=== PATIENT | female | born 1935 | race African-American/Black ===

== ENCOUNTER 2021-05-09 09:47 | Inpatient (IN) | payer OTHER ==
[~2021-05-09] VITALS: Ht 165.1 cm; Wt 121.8 kg
[2021-05-09 09:56] VITALS: BP 186/94
[2021-05-09] MEDS ORDERED: LANTUS SUBQ (10:04)
[2021-05-09] MEDS ORDERED: NORCO5 PO ×2 (10:05→16:03)
[2021-05-09] MEDS ORDERED: NORVASC5 MG PO (10:05)
[2021-05-09] MEDS ORDERED: BUTALBIT-ACETA1 EACH PO (10:06)
[2021-05-09] MEDS ORDERED: DULOXETINE HCL30 MG PO ×2 (10:06→15:58)
[2021-05-09] MEDS ORDERED: ELIQUIS2.5 MG PO ×2 (10:07→15:49)
[2021-05-09] MEDS ORDERED: ASA81BEC PO (10:07)
[2021-05-09] MEDS ORDERED: CENTRUM SILVER1 EAC6 PO (10:08)
[2021-05-09] MEDS ORDERED: ZOFRAN4 MG PO (10:08)
[2021-05-09] MEDS ORDERED: LASIX 40 MG TAB40 MG PO (10:09)
[2021-05-09] MEDS ORDERED: CARAFATE 1 GM TA1 GM PO ×2 (10:09→16:15)
[2021-05-09] MEDS ORDERED: CREON DR 12,001 EACH PO ×2 (10:10→15:49)
[2021-05-09] MEDS ORDERED: ISOSORBIDE DINI30 MG PO (10:11)
[2021-05-09] MEDS ORDERED: DICLOFENAC SOD100 G1 TOP ×2 (10:12→15:53)
[2021-05-09] MEDS ORDERED: PROTONIX40 M4 PO ×2 (10:13→16:11)
[2021-05-09] MEDS ORDERED: LIPITOR 40 MG T40 M1 PO (10:13)
[2021-05-09] MEDS ORDERED: REQUIP 0.25 M0.25 M1 PO (10:13)
[2021-05-09] MEDS ORDERED: TRAMADOL 50 MG50 MG PO (10:14)
[2021-05-09] MEDS ORDERED: HYDROXYZINE HCL25 M2 PO (10:14)
[2021-05-09] MEDS ORDERED: SPIRONOLACTONE25 MG PO (10:14)
[2021-05-09] MEDS ORDERED: CARVEDILOL12.5 MG PO (10:15)
[2021-05-09] MEDS ORDERED: CLONIDINE HCL0.1 MG PO ×2 (10:18→15:57)
[2021-05-09] MEDS ORDERED: POTASSIUM20 PO ×2 (10:20→10:21)
[2021-05-09 10:51] LABS: ABSOLUTE BASOPHILS 0.4 thou/uL (0.0-0.2); ABSOLUTE EOSINOPHILS 0.3 thou/uL (0.0-0.7); ABSOLUTE LYMPHOCYTES 4.2 thou/uL (0.8-5.3); ABSOLUTE MONOCYTES 1.4 thou/uL (0.0-1.2); ABSOLUTE NEUTROPHILS 7.3 thou/uL (1.6-8.1); BASOPHILS 2.9 %; EOSINOPHILS 2.3 %; HEMATOCRIT 32.6 % (37.0-47.0); HEMOGLOBIN 10.5 gm/dL (12.0-15.0); MCHC 32.2 g/dL (28.0-37.0); MCV 86.9 fL (80.0-100.0); MPV 9.9 fl. (7.2-11.1); NUCLEATED RBCS 0 /100WBC; PLATELET COUNT* 278 thou/uL (150-400); POLYS 53.8 %; RBC 3.75 mil/uL (4.20-5.00); RDW-CV 16.6 % (10.5-14.5); WBC 13.5 thou/uL (4.0-11.0)
[2021-05-09 11:00] LABS: CALCIUM 9.7 mg/dL (8.5-10.1); CREATININE 1.9 mg/dL (0.6-1.3)
[2021-05-09 11:10] LABS: ALBUMIN 3.4 g/dL (3.4-5.0); MAGNESIUM 2.3 mg/dL (1.8-2.4); TOTAL BILIRUBIN 0.2 mg/dL (<0.1-1.0); TOTAL PROTEIN 8.1 g/dL (6.4-8.2)
--- NOTE | 2021-05-09 14:14 | EKG ---
[place] [address] ELECTROCARDIOGRAM REPORT Name: NINA PARKS Room: [place] [address] ADM IN [facility]#: [id number] Admission: 05/09/21 Attend Phys: Daquan Chowdhury Discharge: Date of : 39 Date of Service: 05/09/21 1023 Report #: [id number] THIS REPORT FOR: //name// [facility] ED Test Date: 2021-05-09 Test Time: 10:23:35 Pat Name: NINA PARKS Department: Room: [facility] Gender: F Supervisor [employer]: RADHA : 1935 Requested By: Navdeep Samuel Order Number: [id number] MD: Stveie Louie Measurements Intervals [place] Rate: 87 P: -50 VA: 174 QRS: -48 QRSD: 95 T: -22 QT: 397 QTc: 478 Interpretive Statements Atrial-sensed ventricular-paced complexes ventricular pseudofusion beats noted No further rhythm analysis attempted due to paced rhythm No previous ECG available for comparison Electronically Signed On 05-09-2021 14:14:38 CDT by Stevie Louie [email or web address] <ELECTRONICALLY SIGNED> By: Stevie Louie MD, [facility] 05/09/21 1414 1023 1023 Stevie Louie MD, [facility] /EPI
[2021-05-09 14:30] VITALS: BP 166/73
[2021-05-09 15:00] VITALS: BP 171/83
[2021-05-09] MEDS ORDERED: NORVASC10 MG PO (15:47)
[2021-05-09] MEDS ORDERED: ACETAMINOPHEN325 MG PO (15:47)
[2021-05-09] MEDS ORDERED: LIPITOR40 MG PO (15:50)
[2021-05-09] MEDS ORDERED: CHILDREN'S ASPI81 M1 PO (15:50)
[2021-05-09] MEDS ORDERED: BISACODYL5 MG PO (15:52)
[2021-05-09] MEDS ORDERED: BISOPROLOL FUMAR5 MG PO (15:53)
[2021-05-09] MEDS ORDERED: CALCIUM CARBON500 MG PO (15:54)
[2021-05-09] MEDS ORDERED: FLONASE 0.05%50 MCG NARES (15:59)
[2021-05-09] MEDS ORDERED: FUROSEMIDE 40 M40 MG PO (16:00)
[2021-05-09] MEDS ORDERED: NEURONTIN 300M300 M2 PO (16:01)
[2021-05-09] MEDS ORDERED: GLUCERNA237 M1 PO (16:02)
[2021-05-09] MEDS ORDERED: HYDRALAZINE 5050 MG PO (16:03)
[2021-05-09] MEDS ORDERED: LANTUS100 UNIT/M SUBQ (16:05)
[2021-05-09] MEDS ORDERED: INSULIN LI100 UNIT/1 SUBQ (16:06)
[2021-05-09] MEDS ORDERED: IMDUR 30 MG TAB30 M1 PO (16:08)
[2021-05-09] MEDS ORDERED: IPRAT-ALBUT 0.5-3 ML INH (16:08)
[2021-05-09] MEDS ORDERED: KRISTALOSE20 GM PO (16:10)
[2021-05-09] MEDS ORDERED: ONDANSETRON HCL4 M2 PO (16:11)
[2021-05-09] MEDS ORDERED: MIRALAX119 GM PO (16:12)
[2021-05-09] MEDS ORDERED: REQUIP 0.25 M0.25 MG PO (16:13)
[2021-05-09] MEDS ORDERED: SENOKOT8.6 MG PO (16:14)
[2021-05-09 20:00] VITALS: BP 163/83
--- NOTE | 2021-05-09 20:00 | NUR ---
RECEIVED REPORT AND ASSUMED CARE OF PT, ASSESSMENT COMPLETED. PT C/O LT ABD PAIN AND RIBS, MOANING LOUDLY. DISCUSSED CONSTIPATION, PAIN AND ABD CRAMPING. MEDS WILL BE GIVEN SCHEDULED TIME ALLOWS. TELEMETRY ON SHOWING AV PACED RHYTHM. WILL CONT TO MONITOR AND ASSIST NEEDED.
[2021-05-10] VITALS (7 sets, daily range): BP systolic 89–138; BP diastolic 55–79
--- NOTE | 2021-05-10 07:02 | NUR ---
SLEPT WELL TONIGHT. WHEN AWAKE DOES C/O LT ABD PAIN AND LT RIB PAIN. PT HAS NOT VOIDED ALL NIGHT. ASSISTED TO BSC, STILL DID NOT VOID. BLADDER SCANNED FOR NO URINE. WAS INCONT OF SM AMT OF DK STOOL. ASSESSMENT UNCHANGED. TELEMETRY SHOWING A-FIB WITH AV PACED BEATS. HS GOALS OF REST AND SAFETY ACHIEVED. HOURLY ROUNDING OBSERVED.
[2021-05-10 09:14] LABS: ABSOLUTE BASOPHILS 0.1 thou/uL (0.0-0.2); ABSOLUTE EOSINOPHILS 0.1 thou/uL (0.0-0.7); ABSOLUTE LYMPHOCYTES 3.3 thou/uL (0.8-5.3); ABSOLUTE MONOCYTES 1.2 thou/uL (0.0-1.2); ABSOLUTE NEUTROPHILS 7.4 thou/uL (1.6-8.1); BASOPHILS 0.7 %; EOSINOPHILS 1.1 %; HEMATOCRIT 32.1 % (37.0-47.0); HEMOGLOBIN 10.1 gm/dL (12.0-15.0); MCH 27.6 pg (26.0-34.0); MCHC 31.4 g/dL (28.0-37.0); MCV 87.9 fL (80.0-100.0); MONOCYTES 9.9 %; MPV 9.6 fl. (7.2-11.1); NUCLEATED RBCS 0 /100WBC; PLATELET COUNT* 257 thou/uL (150-400); POLYS 61.3 %; RBC 3.65 mil/uL (4.20-5.00); RDW-CV 16.7 % (10.5-14.5)
[2021-05-10 09:23] LABS: CALCIUM 8.9 mg/dL (8.5-10.1); CREATININE 2.3 mg/dL (0.6-1.3); POTASSIUM 4.5 mmol/L (3.5-5.1)
--- NOTE | 2021-05-10 10:12 | NUR ---
CM ASSESSMENT: CM ATTEMPTED TO SPEAK TO THE PT TO DISCUSS CM ASSESSMENT. PT RESTING WITH EYES CLOSED. CM ATTEMPTED TO CONTACT PT'S DTR AND LEFT A VOICEMAIL FOR HER TO RETURN CALL. RN IN-CHARGE OF PT INFORMS THAT PT'S DTR STATES THAT THE PT RESIDES AT HOME WITH HER AND IS INDEPENDENT AND ACTIVE AT HOME. CM AWAITING CALL FROM PT'S DTR TO DISCUSS PT'S BASELINE AT HOME. CM WILL REMAIN AVAILABLE TO ASSIST AND FOLLOW NEEDED.
--- NOTE | 2021-05-10 20:00 | NUR ---
RECEIVED REPORT AND ASSUMED CARE OF PT, ASSESSMENT COMPLETED. HOB ELEVATED, O2 ON AT 3L/NC. PT HAVING CONSTANT LT ABD AND RIB PAIN. PT ABLE TO NAP BUT AWAKENS EASILY. TELEMETRY ON SHOWING V PACED. WILL CONT TO MONITOR AND ASSIST NEEDED.
[2021-05-11 03:37] LABS: HEMATOCRIT 27.2 % (37.0-47.0); HEMOGLOBIN 8.8 gm/dL (12.0-15.0); MCH 28.5 pg (26.0-34.0); MCHC 32.2 g/dL (28.0-37.0); MCV 88.7 fL (80.0-100.0); MPV 9.5 fl. (7.2-11.1); RBC 3.07 mil/uL (4.20-5.00); RDW-CV 16.7 % (10.5-14.5); WBC 10.2 thou/uL (4.0-11.0)
[2021-05-11 03:50] VITALS: BP 110/52
[2021-05-11 03:56] LABS: CALCIUM 8.3 mg/dL (8.5-10.1); POTASSIUM 4.8 mmol/L (3.5-5.1)
[2021-05-11 03:58] LABS: CREATININE 3.6 mg/dL (0.6-1.3)
--- NOTE | 2021-05-11 06:32 | NUR ---
SLEPT WELL TONIGHT. PT WORE CPAP FOR SHORT PERIOD OF TIME BUT STARTED TO VOMIT SO REMOVED. O2 ON AT 3L/NC. IV PAIN MED GIVEN X1 AND EFFECTIVE. INCONT OF LG AMT OF LIQ BLACK STOOL. ASSISTED TO BSC X2 WITH SBA. NO CHANGE IN ASSESSMENT. HS GOALS OF REST AND SAFETY ACHIEVED. HOURLY ROUNDING OBSERVED.
[2021-05-11 08:00] VITALS: BP 129/90
[2021-05-11 13:49] VITALS: BP 99/43
[2021-05-11 16:38] VITALS: BP 102/46
[2021-05-11 20:00] VITALS: BP 114/45
[2021-05-12 00:26] VITALS: BP 114/55
[2021-05-12 04:08] LABS: HEMATOCRIT 25.4 % (37.0-47.0); MCH 28.1 pg (26.0-34.0); MCHC 31.6 g/dL (28.0-37.0); MCV 88.7 fL (80.0-100.0); MPV 9.4 fl. (7.2-11.1); RBC 2.86 mil/uL (4.20-5.00); RDW-CV 16.4 % (10.5-14.5); WBC 11.1 thou/uL (4.0-11.0)
[2021-05-12 04:28] LABS: ALBUMIN 2.6 g/dL (3.4-5.0); ALKALINE PHOSPHATASE 79 U/L (46-116); ANION GAP 5 mmol/L (7-16); BUN 44 mg/dL (7-18); CALCIUM 7.6 mg/dL (8.5-10.1); CHLORIDE 103 mmol/L (98-107); CO2 29 mmol/L (21-32); GLUCOSE 209 mg/dL (70-99); MAGNESIUM 3.6 mg/dL (1.8-2.4); SGOT 18 U/L (15-37); SGPT < 6 U/L (30-65); SODIUM 137 mmol/L (136-145); TOTAL BILIRUBIN 0.2 mg/dL (<0.1-1.0); TOTAL PROTEIN 6.5 g/dL (6.4-8.2)
--- NOTE | 2021-05-12 04:45 | NUR ---
PATIENT SLEPT WELL DURING THIS SHIFT. PT ON O2 @ 3 LITERS AND WEARS HOME BIPAP AT NIGHT. PT TURNED Q2H PER PROTOCAL. PT WITH FLUIDS INFUSING PER DR ORDER. PT IS MED/SURG STATUS. PT WITH NO BOWEL MOVEMENTS DURING THIS SHIFT. PT REQUESTED MORPHINE X1 AT HS. FREQUENTLY USED ITEMS AND CALL LIGHT WITHIN REACH. SIDERAILS UPX3 AND BED ALARM ON. WILL CONTINUE TO MONITOR.
[2021-05-12 04:53] VITALS: BP 127/53
[2021-05-12 13:00] VITALS: BP 124/46
[2021-05-12 18:30] VITALS: BP 144/67
--- NOTE | 2021-05-12 18:43 | NUR ---
RESUMED PATIENT CARE AT 0700. ALL ASSESSMENTS COMPLETED CHARTED. PATIENT HAD TWO BOWEL MOVEMENTS.
[2021-05-12 19:45] VITALS: BP 115/60
--- NOTE | 2021-05-12 19:45 | NUR ---
RECEIVED REPORT AND ASSUMED CARE OF PT, ASSESSMENT COMPLETED. PT PLEASANT, BUT MOANING WITH PAIN INTO LUQ ABD AND RIBS, MOANING LOUDER AND RUBBING ABD WHEN ATTENTION IS GIVEN. DISCUSSED PAIN, CONSTIPATION, MEDS. IV FLUIDS INFUSING. WILL CONT TO MONITOR AND ASSIST NEEDED.
[2021-05-13] VITALS: BP 124/57
[2021-05-13 04:00] VITALS: BP 134/64
--- NOTE | 2021-05-13 07:04 | NUR ---
AWAKE FREQ DURING NIGHT DUE TO FREQ STOOLS. HAVING INCONT AND ABLE TO GET UPTO BSC. STOOLS ARE LARGE, UNFORMED AND BLACK. CONT TO C/O LT ABD/RIB PAIN. NO CHANGE IN ASSESSMENT. HS GOALS OF REST AND SAFETY PARTICAL ACHIEVED BUT ADVANCING TOWARDS DISCHARGE. HOURLY ROUNDING OBSERVED.
[2021-05-13 08:36] LABS: CALCIUM 8.1 mg/dL (8.5-10.1); CREATININE 2.3 mg/dL (0.6-1.3); POTASSIUM 5.3 mmol/L (3.5-5.1)
[2021-05-13 08:54] VITALS: BP 125/69
[2021-05-13 12:00] VITALS: BP 125/65
--- NOTE | 2021-05-13 13:30 | NUR ---
PLAN OF CARE: PHYSICIAN INFORMS THAT THE PT IS NOT MEDICALLY STABLE TO D/C TODAY. PLAN REMAINS FOR THE PT RO RETURN HOME AT D/C AND RESUME HH WITH [facility]. CM WILL REMAIN AVAILABLE TO ASSIST AND FOLLOW NEEDED.
[2021-05-13 16:20] VITALS: BP 170/83
--- NOTE | 2021-05-13 17:46 | NUR ---
1720 - Report called to Giovana MG, all questions answered. 1730 - Pt to joint&spine unit at this time by tech with chart and all belongings, upon tx pt aoX2, vss, and no acute concerns. Transfer of care at this time
--- NOTE | 2021-05-13 18:24 | NUR ---
REPORT RECEIVED FROM ELDA MG AT 1720. PT TO UNIT APPROX 1744. PT ARRIVED IN WHEELCHAIR WITH NURSING STAFF. PT ASSISTED TO RECLINER, SBA. PT A&O2-3. 3L O2 BY NASAL CANNULA, BASELINE OXYGEN USE. IV TO LFA. ACCUCHECKS WITH SLIDING SCALE INSULIN ORDERED. PT RESTS IN RECLINER WITH CALL IGHT IN REACH, WILL CONTINUE TO MONITOR.
[2021-05-13 20:30] VITALS: BP 150/64
[2021-05-14 04:42] LABS: HEMATOCRIT 26.1 % (37.0-47.0); HEMOGLOBIN 8.3 gm/dL (12.0-15.0); MCH 28.3 pg (26.0-34.0); MCHC 31.9 g/dL (28.0-37.0); MCV 88.9 fL (80.0-100.0); MPV 10.2 fl. (7.2-11.1); RBC 2.94 mil/uL (4.20-5.00); RDW-CV 16.6 % (10.5-14.5); WBC 5.5 thou/uL (4.0-11.0)
[2021-05-14 04:56] LABS: ALBUMIN 2.9 g/dL (3.4-5.0); CALCIUM 8.4 mg/dL (8.5-10.1); CREATININE 1.7 mg/dL (0.6-1.3); POTASSIUM 5.6 mmol/L (3.5-5.1); TOTAL BILIRUBIN 0.2 mg/dL (<0.1-1.0); TOTAL PROTEIN 7.4 g/dL (6.4-8.2)
--- NOTE | 2021-05-14 07:50 | NUR ---
PATIENT SLEPT MOST OF THE NIGHT. IV REMAINS SALINE LOCKED. PATIENT WAS GIVEN PAIN MEDICINE ONCE FOR PAIN. PATIENT WAS VERY SHORT OF BREATH AND WHEEEZY AFTER TO GETTING UP TO THE COMMODE THIS MORNING. SATS WERE 100% ON 3L OXYGEN. WILL CONTINUE TO MONITOR.
[2021-05-14 08:15] VITALS: BP 159/83
[2021-05-14 09:08] VITALS: BP 150/64
--- NOTE | 2021-05-14 12:33 | NUR ---
Anticipate dc in a few days. Plan remains to return home with [facility].
--- NOTE | 2021-05-14 14:00 | NUR ---
Nutrition: Pt admitted with epigastric pain, constipation. Seen for high BMI. CHO controlled diet. PMHx: DM, HTN, OBE, CAD. Pt with abd pain during our visit. She stated she gets hungry but then loses her appetite when the food comes, poor appetite. She also requested snacks so might have something on hand between meals if she gets hungry. She is trying to drink more fluids. Wt: 268#. +BMs. Labs: K+5.6, BG 320-299. Alb 2.9, prealb 19.1, A1c 7%. Pt agreed to [place] Glucerna between meals for a snack - RD will order. Consider mild risk.
[2021-05-14 15:56] VITALS: BP 143/66
--- NOTE | 2021-05-14 17:13 | NUR ---
PT A&OX4 FORGETFUL AT TIMES. VSS. ACCUCHYECKS, SLIDING SCALE INSULIN ADMINMISTERED INDICATED. IV TO LFA PATENT, SALINE LOCKED./ PT REFUSED MILK OF MAG THIS MORNING. PT STATES HER BOWELS ARE MOVING JUST FINE. PT UP TO RECLINER THIS SHIFT. PT ON 3L O2 PER NASAL CANNULA. PT RESTS IN ROOM WITH CALL IGHT IN REACH, WILL CONTINUE TO MONITOR.
[2021-05-14 20:09] VITALS: BP 171/88
--- NOTE | 2021-05-15 05:26 | NUR ---
TOWARDS THE BEGINNING OF SHIFT PT HAD A VERY DIFFICULT TIME BREATHING. DR VANCE ORDERED ONE TIME DOSE OF LASIX AND CT OF CHEST. THE SCAN WAS NEG FOR PULM EDEMA OR CARDIAC ABNORMALITIES. SHE WAS GIVEN BREATHING TREATMENTS PRN REQUESTED. HOB ELEVATED. LASIX HELPED SOME THROUGH THE NIGHT. ASLO GETTING SOLUMEDOL. SHE DID NOT REPORT PAIN. SHE CAN GET UP WITH ASSISTANCE TO COMMODE BUT GETS VERY SHORT OF BREATH. CYMBALTA GIVEN FOR ANXIETY. LUNGS SOUNDED CRACKLY AND WHEEZY. SHE RECEIVED ALL OTHER MEDS SCHEDULED. O2 IS 100% WITH 3L-02 NC. SHE ALSO HAS BIPAP USED OVERNIGHT. WILL CONTINUE TO MONITOR.
[2021-05-15 08:00] VITALS: BP 127/82
[2021-05-15 12:26] LABS: CALCIUM 8.5 mg/dL (8.5-10.1); CREATININE 1.5 mg/dL (0.6-1.3); POTASSIUM 4.9 mmol/L (3.5-5.1)
--- NOTE | 2021-05-15 13:22 | 2DMMODE ---
[place] [address] 2 D/M-MODE ECHOCARDIOGRAM Name: NINA PARKS Room: [address] IN [facility]#: [id number] Admission: 05/11/21 Attend Phys: Daquan Chowdhury Discharge: Date of : 39 Date of Service: 05/15/21 1322 Report #: [id number] THIS REPORT FOR: cc: Pelon Yu MD, Jason MD Holkins,Johnathan Izquierdo MD [facility] ~ APPROVED REPORT Study performed: 05/15/2021 10:22:24 EXAM: Comprehensive 2D, Doppler, and color-flow Echocardiogram Patient Location: In-Patient Room #: [facility] Status: routine BSA: 2.24 HR: 80 bpm BP: 127/82 mmHg Rhythm: NSR Other Information Study Quality: Good Indications Congestive Heart Failure 2D Dimensions IVSd: 13.64 (7-11mm) LVOT Diam: 21.61 (18-24mm) LVDd: 54.18 mm PWd: 11.45 (7-11mm) Ascending Ao: 39.38 (22-36mm) LVDs: 38.47 (25-40mm) Aortic Root: 34.06 mm Volumes Left Atrial Volume (Systole) LA ESV Index: 37.30 mL/m2 Aortic Valve AoV Peak Librado.: 2.37 m/s AO Peak Gr.: 22.37 mmHg LVOT Max P.83 mmHg AO Mean Gr.: 13.10 mmHg LVOT Mean P.09 mmHg LVOT Max V: 1.31 m/s AO V2 VTI: 48.08 cm LVOT Mean V: 0.80 m/s MARLENI (VTI): 2.10 cm2 LVOT V1 VTI: 27.57 [place] [address] 2 D/M-MODE ECHOCARDIOGRAM Name: NINA PARKS Room: [address] IN [facility]#: [id number] Admission: 05/11/21 Attend Phys: Daquan Chowdhury Discharge: Date of : 39 Date of Service: 05/15/21 1322 Report #: [id number] Mitral Valve E/A Ratio: 0.87 MV Decel. Time: 325.29 ms MV E Max Librado.: 1.07 m/s MV PHT: 94.34 ms MVA (PHT): 2.33 cm2 Pulmonary Valve PV Peak Librado.: 1.51 m/s PV Peak Gr.: 9.15 mmHg Tricuspid Valve RAP Estimate: 5.00 mmHg TR Peak Gr.: 33.56 mmHg RVSP: 38.00 mmHg PA Pressure: 38.00 mmHg Left Ventricle The left ventricle is normal size. There is normal LV segmental wall motion. Mild concentric left ventricular hypertrophy. Left ventricular systolic function is normal. The left ventricular ejection fraction is within the normal range. LVEF is 60-65%. Grade I - abnormal relaxation pattern. Right Ventricle The right ventricle is normal size. The right ventricular systolic function is normal. Pacemaker lead is present in the right ventricle. Atria Left atrium is mildly dilated. The right atrium size is normal. Aortic Valve Mild aortic valve sclerosis. No aortic regurgitation is present. No hemodynamically significant valvular aortic stenosis. Mitral Valve Mild mitral annular calcification. Mild mitral regurgitation. No evidence of mitral valve stenosis. Tricuspid Valve The tricuspid valve is normal in structure. Mild tricuspid regurgitation. Mild pulmonary hypertension. Pulmonic Valve The pulmonary valve is normal in structure. [place] [address] 2 D/M-MODE ECHOCARDIOGRAM Name: NINA PARKS Room: [address]#: [id number] Admission: 05/11/21 Attend Phys: Daquan Chowdhury Discharge: Date of : 39 Date of Service: 05/15/21 1322 Report #: [id number] Great Vessels The aortic root is normal in size. IVC is normal in size and collapses >50% with inspiration. Pericardium There is no pericardial effusion. <Conclusion> The left ventricle is normal size. Mild concentric left ventricular hypertrophy. Left ventricular systolic function is normal. The left ventricular ejection fraction is within the normal range. LVEF is 60-65%. Grade I - abnormal relaxation pattern. The right ventricle is normal size. Left atrium is mildly dilated. The right atrium size is normal. Mild aortic valve sclerosis. No aortic regurgitation is present. No hemodynamically significant valvular aortic stenosis. Mild mitral annular calcification. Mild mitral regurgitation. No evidence of mitral valve stenosis. The tricuspid valve is normal in structure. Mild tricuspid regurgitation. Mild pulmonary hypertension. IVC is normal in size and collapses >50% with inspiration. There is no pericardial effusion. There is normal LV segmental wall motion. <ELECTRONICALLY SIGNED> By: Johnathan Freed MD, FACC 05/15/21 132 21 21 Johnathan Freed MD, FACC /INF
--- NOTE | 2021-05-15 14:43 | NUR ---
Anticipate dc in a few days. Monitor pain control. Plan home with HH
[2021-05-15 16:14] VITALS: BP 136/67
--- NOTE | 2021-05-15 18:45 | NUR ---
PT ALERT AND ORIENTED X 4. PT RESTING IN BED AT THIS TIME. PT IV TAKEN OUT OF LEFT FOREARM DUE TO PAIN AND SWELLING. PT DAUGHTER VISITED THIS EVENING. INFORMED OF PLAN OF CARE. PT REPORTS CHRONIC LEG PAIN. PT GIVEN ORAL AND IV PAIN MEDS WITH SOME RELIEF. PT UP TO BEDSIDE COMMODE AND CHAIR TODAY. STEADY WITH WALKER AND STANDBY ASSIST. PT TIRES EASILY AND GETS SOA WITH ACTIVITY. FALL PRECAUTIONS REMAIN IN PLACE. WILL CONTINUE TO MONITOR.
[2021-05-15 20:57] VITALS: BP 140/76
[2021-05-16 07:54] LABS: HEMATOCRIT 25.4 % (37.0-47.0); HEMOGLOBIN 8.2 gm/dL (12.0-15.0); MCH 28.3 pg (26.0-34.0); MCHC 32.2 g/dL (28.0-37.0); MCV 88.1 fL (80.0-100.0); MPV 10.1 fl. (7.2-11.1); RBC 2.89 mil/uL (4.20-5.00); RDW-CV 16.5 % (10.5-14.5); WBC 9.3 thou/uL (4.0-11.0)
[2021-05-16 08:00] VITALS: BP 134/6
[2021-05-16 08:43] LABS: CREATININE 1.7 mg/dL (0.6-1.3)
[2021-05-16 08:44] LABS: ALBUMIN 3.1 g/dL (3.4-5.0); CALCIUM 8.3 mg/dL (8.5-10.1); MAGNESIUM 3.2 mg/dL (1.8-2.4); TOTAL BILIRUBIN 0.2 mg/dL (<0.1-1.0); TOTAL PROTEIN 7.4 g/dL (6.4-8.2)
[2021-05-16 10:48] LABS: URINE BILIRUBIN NEGATIVE (Negative); URINE BLOOD NEGATIVE (Negative); URINE CLARITY CLEAR; URINE COLOR YELLOW; URINE GLUCOSE-RANDOM 1+ (Negative); URINE KETONES NEGATIVE (Negative); URINE LEUKOCYTES 1+ (Negative); URINE NITRITE NEGATIVE (Negative); URINE PROTEIN NEGATIVE (Negative); URINE UROBILINOGEN 0.2 E.U./dl (0.2-1.0)
[2021-05-16 10:53] LABS: SQUAMOUS 0-3 Few /LPF (0-3); URINE RBC None Seen /HPF (0-2); URINE WBC 0-5 Rare /HPF (0-5)
[2021-05-16 10:54] LABS: BACTERIA 1-9 Few /HPF (None Seen); CASTS None Seen /LPF (None Seen); CRYSTALS None Seen /LPF (None Seen); MUCUS None Seen strn/LPF (None Seen)
--- NOTE | 2021-05-16 13:52 | NUR ---
Anticipate dc in a few days. Respiratory status is improved. GI consult. [facility]
[2021-05-16 15:40] VITALS: BP 136/66
--- NOTE | 2021-05-16 18:30 | NUR ---
PT SITTING IN THE CHAIR COLORING AT THIS TIME. PT UP TO THE BEDSIDE COMMODE WITH ONE ASSIST. PT REMAINS ON 3L O2. PT GIVEN PAIN MEDS X 2 THIS SHIFT FOR RELIEF OF LEFT RIB/LEG PAIN. LIDOCAINE PATCH REMAINS IN PLACE. COUGH STILL NOTED. PT TOLERATING PO INTAKE WELL. CALL LIGHT WITHIN REACH. WILL CONTINUE TO MONITOR.
[2021-05-16 20:00] VITALS: BP 162/72
--- NOTE | 2021-05-17 04:42 | NUR ---
PT A&O X 4, ON 3L BY BUFFY LI HS. MEDS GIVEN ORDERED. C/O BACK PAIN, NORCO GIVEN X 2. UP WITH SBA TO BSC. SLEPT MOST OF THE NIGHT. PT CALL LIGHT WITHIN REACH. WILL CONTINUE TO MONITOR.
[2021-05-17 07:20] VITALS: BP 168/83
--- NOTE | 2021-05-17 15:21 | NUR ---
No weekend dc anticipated. GI following, Pt continues to complain of abd pain. Limited food intake.
[2021-05-17 16:00] VITALS: BP 171/89
--- NOTE | 2021-05-17 16:35 | NUR ---
PT REMAINED ALERT AND ORIENTED. GASTRIC EMPTYING TEST COMPLETED. PT C/O PAIN, MEDS GIVEN ORDERED. FALL RISK PRECAUTIONS IN PLACE. HOURLY ROUNDING COMPLETED.
[2021-05-17 19:40] VITALS: BP 147/51
--- NOTE | 2021-05-18 04:32 | NUR ---
PT A&O, ON 3L. MEDS GIVEN ORDERED. NO C/O PAIN. UP TO BSC WITH ASSIST. PT SLEPT MOST OF THE NIGHT WITH HER BIPAP ON. CALL LIGHT WITHIN REACH. WILL CONTINUE TO MONITOR.
[2021-05-18 07:15] VITALS: BP 172/82
[2021-05-18 09:27] LABS: HEMATOCRIT 25.2 % (37.0-47.0); HEMOGLOBIN 8.3 gm/dL (12.0-15.0); MCH 28.4 pg (26.0-34.0); MCHC 32.8 g/dL (28.0-37.0); MCV 86.4 fL (80.0-100.0); MPV 9.8 fl. (7.2-11.1); RBC 2.91 mil/uL (4.20-5.00); RDW-CV 16.2 % (10.5-14.5); WBC 8.7 thou/uL (4.0-11.0)
[2021-05-18 09:41] LABS: ALBUMIN 2.7 g/dL (3.4-5.0); CALCIUM 8.7 mg/dL (8.5-10.1); CREATININE 1.6 mg/dL (0.6-1.3); MAGNESIUM 3.2 mg/dL (1.8-2.4); POTASSIUM 4.8 mmol/L (3.5-5.1); TOTAL BILIRUBIN 0.2 mg/dL (<0.1-1.0); TOTAL PROTEIN 6.5 g/dL (6.4-8.2)
--- NOTE | 2021-05-18 16:17 | NUR ---
PT REMAINED ALERT AND ORIENTED. UP TO CHAIR FOR MEALS. ACCU CHECKS COMPLETED. FALL RISK PRECAUTIONS IN PLACE. HOURLY ROUNDING COMPLETED.
[2021-05-18 16:18] VITALS: BP 144/67
[2021-05-18 20:00] VITALS: BP 164/72
--- NOTE | 2021-05-19 03:43 | NUR ---
PATIENT SITTING IN RECLINER AT BEGINNING OF SHIFT. PT UP TO BSC AND HAD BOWEL MOVEMENT. PT UP WITH MAX ASSIST OF ONE. PT ON O2 @ 3 LITERS AND HOME BIPAP ON 3LITERS. PT WITH LT EJ; SALINE LOCKED. PT ON HIGH DOSE SLIDING SCALE WITH 2100 BLOOD SUGAR OF 381. PT RECEIVED LANTUS 25 UNITS AND HUMALOG 23 UNITS. PT RECEIVED ONE HYDROCODONE AT HS FOR PAIN. FREQUENTLY USED ITEMS AND CALL LIGHT WITHIN REACH. SIDERAILS UPX2. PT USES CALL LIGHT APPROPRIATELY PRIOR TO GETTING OUT OF BED. WILL CONTINUE TO MONITOR.
[2021-05-19 07:30] VITALS: BP 141/69
[2021-05-19 16:00] VITALS: BP 133/68
--- NOTE | 2021-05-19 17:02 | NUR ---
PT REMAINED ALERT AND ORIENTED. TP C.O PAIN, MEDS GIVEN PRN. PT UP TO CHAIR FOR MEALS. FALL RISK PRECAUTIONS IN PLACE. HOURLY ROUNDING COMPLETED.
[2021-05-19 20:18] VITALS: BP 123/54
--- NOTE | 2021-05-20 06:21 | NUR ---
PATIENT SLEPT MOST OF THE NIGHT. PATIENT WAS GIVEN PAIN MEDICINE ONCE THIS SHIFT. IV REMAINS SALINE LOCKED. WILL CONTINUE TO MONITOR.
[2021-05-20 08:20] VITALS: BP 141/48
--- NOTE | 2021-05-20 14:24 | NUR ---
Pt on bipap. Gi following. Continue to plan dc to home with [facility] at dc. Anticipate dc in a day or 2.
[2021-05-20 16:23] VITALS: BP 116/36
[2021-05-20 20:00] VITALS: BP 128/58
[2021-05-21 03:50] LABS: HEMATOCRIT 23.9 % (37.0-47.0); HEMOGLOBIN 7.6 gm/dL (12.0-15.0); MCV 87.6 fL (80.0-100.0); MPV 8.9 fl. (7.2-11.1); RBC 2.73 mil/uL (4.20-5.00); RDW-CV 16.9 % (10.5-14.5); WBC 16.8 thou/uL (4.0-11.0)
[2021-05-21 04:10] LABS: ALBUMIN 2.5 g/dL (3.4-5.0); CALCIUM 8.2 mg/dL (8.5-10.1); CREATININE 2.1 mg/dL (0.6-1.3); MAGNESIUM 3.1 mg/dL (1.8-2.4); POTASSIUM 5.5 mmol/L (3.5-5.1); TOTAL BILIRUBIN 0.1 mg/dL (<0.1-1.0); TOTAL PROTEIN 5.8 g/dL (6.4-8.2)
--- NOTE | 2021-05-21 05:49 | NUR ---
ASSUMED CARE OF FROM DAY SHIFT PT SITTING UP IN CHAIR ASSESSMENT COMPLETED, PT STATES SHE FEEL SOA , SAT 100 % AND EXP WHEEZES NOTED. RESP THERAPHY CALLED FOR TREATMENT. PT STATES SHE HAS NOT RECUEVD HER LASIX FOR 2 DAYS AND FEEL SHE NEED HER LASIX , LOWER LEG APPEAR TO SWOLLEN WHICH PT STATES THIS IS NOT THE NORMAL FOR HER. DR VANCE CALLED AND LASIX GIVEN, CPAP NOT AVAILABLE FOR PT SO ORDER RECIEVED FOR BIPAP.PT RESTING WELL THROUGHOUT ROUNDING SAT 100 % , NO C/O SOA OR RESP DISTRESS NOTED.
[2021-05-21 08:10] VITALS: BP 123/73
--- NOTE | 2021-05-21 14:31 | NUR ---
Anticipate dc in 1-2 days to home with [facility] . Pt progressing slowly and continues to be acutely ill.
--- NOTE | 2021-05-21 15:29 | CON ---
[address] [address] CONSULTATION Name: MADELEINECHIPNINA Nik Room: [address] IN [facility]#: [id number] Admission: 05/11/21 Attend Phys: Jayla Miller Discharge: Date of : 39 Report #: [id number] THIS REPORT FOR: cc: Pelon Yu MD, Jason MD Namin, Farid M. MD ~ DOC #: [id number] cc: MD Madison Langston, [facility] DATE OF CONSULTATION: 05/17/2021 Please note at the time of this dictation, the patient was seen and physically examined by myself. REASON FOR CONSULTATION: Recurrent abdominal pain. HISTORY OF PRESENT ILLNESS: This is an 86-year-old female who presented to the emergency room with worsening of her abdominal pain. The patient had a fall a couple of months ago and recently had been at [place] after that fall landing on her left side. Imaging at that time showed no broken ribs. She was treated for some congestive heart failure and she was in the hospital for about 2 weeks during that time. She continues to have this left-sided abdominal pain that radiates into the epigastric to umbilical area. She states it is intermittent currently and she states that she does have issues with getting full very quickly with any meal, which does precipitate the pain. The patient does have a longstanding history with constipation. I was able to talk to both of her daughters, one who she currently lives with, which is Zoie and the one that she previously lived with down in [place], [place], Della. Both were confirming her past medical history, which included that she has never had an upper scope, but she did have a colonoscopy about 3-4 years ago that showed only diverticulosis. Otherwise, completely normal. No polyps were removed. She has never had an EGD. However, she has never complained of any acid reflux. The daughter in [place] did tell me that she has a history of some gastroparesis, so therefore we will check a gastric emptying test and she is not on any medications for that. She does not recall the severity of that at that time. In talking with the daughter that she lives with now, she states that she gives her MiraLax every other day and she states that in the day that she may have her bowels moved several times in one day and then go several days without a bowel movement. The patient has severe COPD, an oxygen dependent, 3 liters during the day and Trelegy at night, also with some sleep apnea. The patient has a long history of diabetes as well. The patient moved up here in 06/2019 after her son and she was unable to travel back to [place] due to the severity of her overall health. Last bowel movement was about 3 days ago. She denies any nausea or vomiting. No fever [place] [address] CONSULTATION Name: NINA PARKS Room: [address] IN M..#: [id number] Admission: 05/11/21 Attend Phys: Jayla Miller Discharge: Date of : 39 Report #: [id number] ALLERGIES: PORK DERIVED, RED DYE. MEDICATIONS FROM HOME: Include acetaminophen, Norvasc, Creon, Eliquis, aspirin, Lipitor. She takes bisacodyl every 3 days, bisoprolol, diclofenac topical, clonidine, duloxetine, furosemide, gabapentin, Flonase, [place], insulin, Kristalose p.r.n. constipation, Zofran, pantoprazole at bedtime, MiraLax, Requip, Senokot and Carafate. PAST MEDICAL HISTORY: Congestive heart failure; severe COPD, O2 dependent, on Trelegy at night for her sleep apnea; type 2 diabetes, insulin controlled poorly; coronary artery disease; hyperlipidemia; history of a DVT; sleep apnea. PAST SURGICAL HISTORY: She has had a pacemaker. FAMILY HISTORY: Noncontributory. SOCIAL HISTORY: She lives with her daughter here in town. Denies any tobacco use, alcohol or illegal drug use. REVIEW OF SYSTEMS: Twelve-point review of systems is essentially negative except what is mentioned in the HPI. PHYSICAL EXAMINATION: VITAL SIGNS: Temperature 36.5, pulse 79, respirations 16, blood pressure 168/83. HEART: Regular rate and rhythm. LUNGS: Diminished with some faint wheezes in the bases. ABDOMEN: Soft, positive bowel sounds in all four quadrants with tenderness noted in the left upper quadrant to epigastric area. The patient currently weighs 267 pounds and is morbidly obese. LABORATORY DATA: Hemoglobin 8.2, white count is 9.3. On admission, hemoglobin was 10.5, but no overt bleeding is noted. Platelets is 253. GFR is 35, BUN is 52, creatinine is 1.7. Iron was 16, TIBC was 210, percentage sat was 8 and ferritin was 242. IMAGING: The patient had a CT of the abdomen and pelvis on day of admission, which showed to be normal, faint radiodense gallstones layered in the dependent portion of the gallbladder. Gallbladder was mildly distended without wall thickening. Pancreas was normal. Heart size moderate. Stomach, small bowel and colon noted a small hiatal hernia. Large amount of stool throughout the entire colon suggesting chronic constipation. She had sigmoid diverticulum. She also had a large amount of stool noted in the rectum and a small inguinal hernia on [facility] [address] [place] [address] CONSULTATION Name: NINA PARKS Room: [address] IN [facility].#: [id number] Admission: 05/11/21 Attend Phys: Jayla Miller Discharge: Date of : 39 Report #: [id number] the left side. IMPRESSION: 1. Abdominal pain. 2. Early satiety. 3. Constipation. 4. Chronic anemia. 5. Severe chronic obstructive pulmonary disease, O2 dependent. 6. Diabetes, not well controlled. 7. Anticoagulant therapy, Eliquis, deep venous thrombosis. 8. Cholelithiasis. PLAN: 1. We will obtain a gastric emptying test, 4 hours. 2. Labs, B12 and a soluble transferrin receptor. 3. The patient would likely benefit from iron infusions. No oral since she has severe constipation. 4. Further recommendations to be made once all of the above has been noted. 5. May consider hepatobiliary scan. If all of the above is negative, the patient is high risk for any endoscopic procedures at this time. Thank you for allowing us to participate in this patient's care. Please do not hesitate to call with any questions in regard to this consult. MD REFUGIO [place]/ROBERTH <ELECTRONICALLY SIGNED> By: Jailyn Villanueva MD 05/21/21 1529 0731 [id number] Villanueva MD /nt
[2021-05-21 17:18] VITALS: BP 120/60
--- NOTE | 2021-05-21 18:22 | NUR ---
PATIENT HAS REMAINED A&OX4, PLEASANT AND COOPERATIVE WITH CARES THIS SHIFT. PATIENT UP STANDBY ASSIST. NEW IV PLACED IN PATIENT'S RIGHT FOREARM BY PICC NURSE THIS MORNING, AND LEFT EJ REMOVED. PATIENT ON O2@3L (CHRONIC) VIA NASAL CANNULA. PATIENT REPORTS BM TODAY. MEDICATIONS AND INSULIN ADMINISTERED ORDERED. BLOOD GLUCOSE OF 425 AT LUNCH TIME REPORTED TO DR. KAYE IN PERSON. PATIENT REQUESTING FLONASE THIS EVENING. MESSAGE SENT TO DR. STACY AT APPROX. 1822 REGARDING THIS. PATIENT HAS BEEN UP IN CHAIR MOST OF SHIFT. CALL LIGHT AND FREQUENTLY USED ITEMS WITHIN REACH.
[2021-05-21 21:00] VITALS: BP 166/55
--- NOTE | 2021-05-22 04:46 | NUR ---
ASSUMED CARES AT 1920. ALERT AND ORIENTED. O2 3L NC. EARLY IN NIGHT PT C/O SOA. PLACED ON BIPAP. PT REQUESTING LASIX. PAGED DR STACY AND ORDER OBTAINED FOR LASIX 40 MG IV X 1. SLEPT MOST OF THE NIGHT. CALL LIGHT IN REACH.
[2021-05-22 08:05] VITALS: BP 165/71
[2021-05-22 10:12] VITALS: BP 150/64
[2021-05-22] MEDS ORDERED: SINGULAIR 10 MG10 M1 PO (17:06)
[2021-05-22] MEDS ORDERED: PREDNISONE 10 M10 MG PO (17:06)
[2021-05-22] MEDS ORDERED: LEVOFLOXACIN500 MG PO (17:06)
[2021-05-22] MEDS ORDERED: REGLAN 10 MG TA10 MG PO (17:06)
[2021-05-22] MEDS ORDERED: NASACORT10.8 ML NARES (17:06)
[2021-05-22] MEDS ORDERED: FUROSEMIDE 40 M40 MG PO (17:06)
[2021-05-22 17:15] VITALS: BP 150/64
[2021-05-22 18:49] VITALS: BP 150/64
== END 2021-05-22 18:00 | disposition home health service (06) | DRG 291 ==
LOC: M.ERS 09:47 → M.2W 11:33 → M.TBA-ER 11:33 → M.2W 11:33 → M.ORTHSURG 05-11 18:30
PROVIDERS: Emergency Medicine Emergency Medical Services; Internal Medicine; ADMIT Internal Medicine; ATTEND Internal Medicine
PROC: 5A09357 Assistance with Respiratory Ventilation, Less than 24 Consecutive Hours, Continuous Positive Airway Pressure (ICD-10-PCS; principal; 2021-05-10)
PROC: 5A09357 Assistance with Respiratory Ventilation, Less than 24 Consecutive Hours, Continuous Positive Airway Pressure (ICD-10-PCS; 2021-05-11)
PROC: 5A09357 Assistance with Respiratory Ventilation, Less than 24 Consecutive Hours, Continuous Positive Airway Pressure (ICD-10-PCS; 2021-05-12)
PROC: 5A09357 Assistance with Respiratory Ventilation, Less than 24 Consecutive Hours, Continuous Positive Airway Pressure (ICD-10-PCS; 2021-05-13)
PROC: 5A09357 Assistance with Respiratory Ventilation, Less than 24 Consecutive Hours, Continuous Positive Airway Pressure (ICD-10-PCS; 2021-05-14)
PROC: 5A09357 Assistance with Respiratory Ventilation, Less than 24 Consecutive Hours, Continuous Positive Airway Pressure (ICD-10-PCS; 2021-05-15)
PROC: 5A09357 Assistance with Respiratory Ventilation, Less than 24 Consecutive Hours, Continuous Positive Airway Pressure (ICD-10-PCS; 2021-05-17)
PROC: 5A09357 Assistance with Respiratory Ventilation, Less than 24 Consecutive Hours, Continuous Positive Airway Pressure (ICD-10-PCS; 2021-05-20)
PROC: 5A09357 Assistance with Respiratory Ventilation, Less than 24 Consecutive Hours, Continuous Positive Airway Pressure (ICD-10-PCS; 2021-05-21)
PROC: 5A09357 Assistance with Respiratory Ventilation, Less than 24 Consecutive Hours, Continuous Positive Airway Pressure (ICD-10-PCS; 2021-05-22)
DX: I11.0 Hypertensive heart disease with heart failure (principal); N17.0 Acute kidney failure with tubular necrosis; J96.01 Acute respiratory failure with hypoxia; K59.00 Constipation, unspecified; I50.33 Acute on chronic diastolic (congestive) heart failure; R07.89 Other chest pain; I49.5 Sick sinus syndrome; I25.10 Atherosclerotic heart disease of native coronary artery without angina pectoris; J44.9 Chronic obstructive pulmonary disease, unspecified; E11.43 Type 2 diabetes mellitus with diabetic autonomic (poly)neuropathy; E78.5 Hyperlipidemia, unspecified; G47.33 Obstructive sleep apnea (adult) (pediatric); R68.81 Early satiety; K80.20 Calculus of gallbladder without cholecystitis without obstruction; D64.9 Anemia, unspecified; K31.84 Gastroparesis; Z20.822 Contact with and (suspected) exposure to COVID-19; Z91.09 Other allergy status, other than to drugs and biological substances; Z79.82 Long term (current) use of aspirin; Z95.0 Presence of cardiac pacemaker; Z91.018 Allergy to other foods; Z79.01 Long term (current) use of anticoagulants; Z79.4 Long term (current) use of insulin; Z79.899 Other long term (current) drug therapy